=== PATIENT | male | born 1935 | race Caucasian/White ===

== ENCOUNTER 2017-06-14 14:06 | Emergency (ER) | payer OTHER ==
[2017-06-14] MEDS ORDERED: Sodium Chloride 0.9% 10 ML Syringe FLUSH PRN (14:37)
[2017-06-14] MEDS ORDERED: Sodium Chloride 0.9% 1,000 ML IV ONE (14:39)
[2017-06-14] MEDS ORDERED: Piperacillin/Tazobactam 4.5 GM in Sodium Chloride 0.9% 100 ML IV ONE (15:27)
[2017-06-14] MEDS ORDERED: methylPREDNISolone Sodium Succinate 125 MG/2 ML SDV IV ONE (17:05)
--- NOTE | 2017-06-14 18:25 | EDM.PDOC ---
ED HPI GENERAL MEDICAL PROBLEM - General Chief Complaint: Fever Time Seen by Provider: 06/14/17 14:46 Source of Information: Reports: Patient, Family History Limitations: Reports: Altered Mental Status - History of Present Illness INITIAL COMMENTS - FREE TEXT/NARRATIVE: Pt. presents to ER with complaints of confusion, weakness, and productive cough. Pt. family states that the pt. underwent cystoscopy yesterday at [facility] by Dr. Elizalde. Pt. has a history of bladder cancer, and was having some tumor removed. He has a nolan catheter in place that is to be removed tomorrow. To not, the catheter hub was incorrectly attached to the balloon port and not to the leg bag. Pt. was left to his own devices regarding home care. Family states that the pt. has been having a productive cough even prior to the cysto and stated that pt. has COPD and is very prone to pneumonia. He is on home O2. He doctors at the [facility]. Onset: Today Location: Reports: Generalized - Related Data Allergies Allergy/AdvReac Type Severity Reaction Status Date / Time budesonide [From Symbicort] Allergy Dizziness Verified 06/14/17 16:16 formoterol [From Symbicort] Allergy Dizziness Verified 06/14/17 16:16 rosuvastatin Allergy Cannot Verified 06/14/17 16:16 Remember simvastatin Allergy Cannot Verified 06/14/17 16:16 Remember Dngdhis-Qde-Vbp Reductase Allergy Cannot Verified 06/14/17 16:16 Inhibitor Remember Home Meds: Home Meds Acetaminophen [Tylenol] 650 mg PO Q12HR 06/14/17 [History] Albuterol [Proair HFA] 1 - 2 inhalation IH Q4HR PRN 06/14/17 [History] Dextran 70/Hypromellose [Artificial Tears] 2 dose EYEBOTH Q4HR PRN 06/14/17 [ History] Ezetimibe [Zetia] 10 mg PO DAILY 06/14/17 [History] Finasteride [Proscar] 5 mg PO DAILY 06/14/17 [History] Folic Acid 1 mg PO DAILY 06/14/17 [History] Folic Acid 1 mg PO DAILY 06/14/17 [History] Gabapentin [Neurontin] 300 mg PO TID 06/14/17 [History] Gluc 2KCl/Chondr/Cary Hy/Hy Ac [Glucosamine & Chondroitin Cap] 1 tab PO BID [History] Isosorbide Mononitrate [Imdur] 120 mg PO DAILY 06/14/17 [History] Levothyroxine 112 mcg PO DAILY 06/14/17 [History] Metoprolol Tartrate 12.5 mg PO BID 06/14/17 [History] Mometasone Furoate [Asmanex] 220 mcg IN BEDTIME 06/14/17 [History] Multivitamin [One Daily Multivitamin] 1 tab PO DAILY 06/14/17 [History] Nitroglycerin [Nitrostat] 0.4 mg PO ASDIRECTED PRN 06/14/17 [History] Fayette-3/DHA/Epa/Fish Oil [Fayette 3 500 Softgel] 1,000 mg PO DAILY 06/14/17 [ History] Omeprazole 20 mg PO DAILY 06/14/17 [History] Tiotropium [Spiriva] 1 puff INH DAILY 06/14/17 [History] atorvaSTATin [Lipitor] 10 mg PO BEDTIME 06/14/17 [History] glipiZIDE [Glucotrol XL] 2.5 mg PO DAILY 06/14/17 [History] guaiFENesin [Guaifenesin] 400 mg PO TID 06/14/17 [History] Social & Family History - Tobacco Use Smoking Status *Q: Unknown Ever Smoked - Recreational Drug Use Recreational Drug Use: No Drug Use in Last 12 Months: No ED ROS GENERAL - Review of Systems Review Of Systems: Unable To Obtain (Please see HPI. Is unable to offer any usable ROS) ED EXAM, GENERAL - Physical Exam Exam: See Below Exam Limited By: No Limitations General Appearance: Alert, WD/WN, No Apparent Distress Eye Exam: Bilateral Eye: EOMI, Normal Fundi, Normal Inspection, PERRL Ears: Normal External Exam, Normal Canal, Hearing Grossly Normal, Normal TMs Ear Exam: Bilateral Ear: Auricle Normal, Canal Normal, TM normal Nose: Normal Inspection, Normal Mucosa, No Blood Throat/Mouth: Normal Inspection, Normal Lips, Normal Teeth, Normal Gums, Normal Oropharynx, Normal Voice, No Airway Compromise Head: Atraumatic, Normocephalic Neck: Normal Inspection, Supple, Non-Tender, Full Range of Motion Respiratory/Chest: Decreased Breath Sounds, Crackles. No: Respiratory Distress Cardiovascular: Normal Peripheral Pulses, Regular Rate, Rhythm, No Edema, No Gallop, No JVD, No Murmur, No Rub Peripheral Pulses: 3+: Radial (L), Radial (R) GI/Abdominal: Normal Bowel Sounds, Soft, Non-Tender, No Organomegaly, No Distention, No Abnormal Bruit, No Mass (Male) Exam: Deferred Rectal (Males) Exam: Deferred Back Exam: Normal Inspection, Full Range of Motion, NT Extremities: Normal Inspection, Normal Range of Motion, Non-Tender, Normal Capillary Refill, No Pedal Edema Neurological: Alert, Oriented, CN II-XII Intact, Normal Cognition, Normal Gait, Normal Reflexes, No Motor/Sensory Deficits Psychiatric: Normal Affect, Normal Mood Skin Exam: Warm, Dry, Intact, Normal Color, No Rash Lymphatic: No Adenopathy EKG INTERPRETATION Rhythm: NSR Bowman: Normal P-Wave: Present QRS: Normal ST-T: Normal QT: Normal Course - Vital Signs Last Recorded V/S: Last Vital Signs Temp 37.7 C 06/14/17 14:46 Pulse 62 06/14/17 17:27 Resp 17 06/14/17 17:27 BP 128/58 L 06/14/17 17:27 Pulse Ox 91 L 06/14/17 17:27 - Orders/Labs/Meds Orders: Active Orders 24 hr Category Date Time Status EKG Documentation Completion [RC] STAT Care 06/14/17 14:42 Active Chest 1V Frontal [CR] Stat Exams 06/14/17 14:38 Taken CULTURE BLOOD [BC] Stat Lab 06/14/17 14:59 Results CULTURE BLOOD [BC] Stat Lab 06/14/17 15:10 Results CULTURE SPUTUM + SMEAR [RM] Stat Lab 06/14/17 15:28 Results CULTURE URINE [RM] Stat Lab 06/14/17 14:37 Received Blood Culture x2 Reflex Set [OM.PC] Stat Oth 06/14/17 14:38 Ordered Peripheral IV Insertion Adult [OM.PC] Routine Oth 06/14/17 14:38 Ordered Labs: Laboratory Tests 06/14/17 06/14/17 06/14/17 Range/Units 14:59 14:59 14:59 WBC 4.5 (4.0-10.0) x10^3/uL RBC 4.37 L (4.5-6.0) x10^6/uL Hgb 12.6 L (14.0-18.0) g/dL Hct 39.3 L (40.0-52.0) % MCV 89.9 (78.0-93.0) fL MCH 28.8 (26.0-32.0) pg MCHC 32.1 (32.0-36.0) g/dL RDW Coeff of Ashok 14.6 (10.0-15.0) % Plt Count 199 (130-400) x10^3/uL Neut % (Auto) 78.5 (50.0-80.0) % Lymph % (Auto) 5.8 L (25.0-50.0) % [place] % (Auto) 15.1 H (2.0-11.0) % Eos % (Auto) 0.2 (0.0-4.0) % Baso % (Auto) 0.4 (0.2-1.2) % PT 10.8 (9.8-11.8) SEC INR 1.0 L (2.0-3.5) Sodium 138 (136-145) mmol/L Potassium 4.5 (3.5-5.1) mmol/L Chloride 101 (98-107) mmol/L Carbon Dioxide 27 (21-32) mmol/L Anion Gap 14.5 (10-20) mmol/L BUN 20 H (7-18) mg/dL Creatinine 1.6 H (0.70-1.30) mg/dL Est Cr Clr Drug Dosing 35.60 mL/min Estimated GFR (MDRD) 42 Glucose 105 (74-106) mg/dL Lactic Acid (0.4-2.0) mmol/L Calcium 8.5 (8.5-10.1) mg/dL Corrected Calcium 8.90 (8.5-10.1) mg/dL Phosphorus 3.5 (2.6-4.7) mg/dL Magnesium 2.0 (1.8-2.4) mg/dL Total Bilirubin 0.3 (0.2-1.0) mg/dL AST 17 (15-37) U/L ALT 16 (16-63) U/L Alkaline Phosphatase 78 (46-116) U/L C-Reactive Protein 5.3 H (<=0.9) mg/dL Total Protein 7.6 (6.4-8.2) g/dL Albumin 3.5 (3.4-5.0) g/dL Globulin 4.1 Albumin/Globulin Ratio 0.85 Urine Color (YELLOW) Urine Appearance (CLEAR) Urine pH (5.0-8.0) Ur Specific [place] Urine Protein (NEGATIVE) mg/dL Urine Glucose (UA) (NEGATIVE) mg/dL Urine Ketones (NEGATIVE) mg/dL Urine Occult Blood (NEGATIVE) Urine Nitrite (NEGATIVE) Urine Bilirubin (NEGATIVE) Urine Urobilinogen (0.2) EU/dL Ur Leukocyte Esterase (NEGATIVE) Urine RBC (NOT SEEN) /HPF Urine Red Cell Clumps Urine WBC (NOT SEEN) /HPF Ur Squamous Epith Cells (NEGATIVE) /HPF Amorphous Sediment Urine Bacteria (NEGATIVE) /HPF Urine Mucus (NEGATIVE) /LPF Urine Yeast (Budding) 06/14/17 06/14/17 Range/Units 14:59 15:28 WBC (4.0-10.0) x10^3/uL RBC (4.5-6.0) x10^6/uL Hgb (14.0-18.0) g/dL Hct (40.0-52.0) % MCV (78.0-93.0) fL MCH (26.0-32.0) pg MCHC (32.0-36.0) g/dL RDW Coeff of Ashok (10.0-15.0) % Plt Count (130-400) x10^3/uL Neut % (Auto) (50.0-80.0) % Lymph % (Auto) (25.0-50.0) % [place] % (Auto) (2.0-11.0) % Eos % (Auto) (0.0-4.0) % Baso % (Auto) (0.2-1.2) % PT (9.8-11.8) SEC INR (2.0-3.5) Sodium (136-145) mmol/L Potassium (3.5-5.1) mmol/L Chloride (98-107) mmol/L Carbon Dioxide (21-32) mmol/L Anion Gap (10-20) mmol/L BUN (7-18) mg/dL Creatinine (0.70-1.30) mg/dL Est Cr Clr Drug Dosing mL/min Estimated GFR (MDRD) Glucose (74-106) mg/dL Lactic Acid 1.2 (0.4-2.0) mmol/L Calcium (8.5-10.1) mg/dL Corrected Calcium (8.5-10.1) mg/dL Phosphorus (2.6-4.7) mg/dL Magnesium (1.8-2.4) mg/dL Total Bilirubin (0.2-1.0) mg/dL AST (15-37) U/L ALT (16-63) U/L Alkaline Phosphatase (46-116) U/L C-Reactive Protein (<=0.9) mg/dL Total Protein (6.4-8.2) g/dL Albumin (3.4-5.0) g/dL Globulin Albumin/Globulin Ratio Urine Color Yellow (YELLOW) Urine Appearance Turbid H (CLEAR) Urine pH 5.5 (5.0-8.0) Ur Specific [place] 1.025 Urine Protein 100 H (NEGATIVE) mg/dL Urine Glucose (UA) Negative (NEGATIVE) mg/dL Urine Ketones Trace H (NEGATIVE) mg/dL Urine Occult Blood Moderate H (NEGATIVE) Urine Nitrite Negative (NEGATIVE) Urine Bilirubin Negative (NEGATIVE) Urine Urobilinogen 0.2 (0.2) EU/dL Ur Leukocyte Esterase Trace H (NEGATIVE) Urine RBC >100 H (NOT SEEN) /HPF Urine Red Cell Clumps Present Urine WBC 5-10 H (NOT SEEN) /HPF Ur Squamous Epith Cells Rare (NEGATIVE) /HPF Amorphous Sediment Few Urine Bacteria Few H (NEGATIVE) /HPF Urine Mucus Few H (NEGATIVE) /LPF Urine Yeast (Budding) Moderate Meds: Medications Discontinued Medications Generic Name Dose Route Start Last Admin Trade Name Velq PRN Reason Stop Dose Admin Sodium Chloride 1,000 mls @ 1,000 mls/hr 06/14/17 14:39 06/14/17 14:56 Normal Saline IV 06/14/17 15:38 1,000 mls/hr .BOLUS ONE Infusion Piperacillin Sod/Tazobactam 100 mls @ 200 mls/hr 06/14/17 15:27 06/14/17 15: 37 Sod 4.5 gm/ Sodium Chloride IV 06/14/17 15:56 200 mls/hr ONETIME ONE Administration Vancomycin HCl 1,250 mg/ 250 mls @ 200 mls/hr 06/14/17 15:28 06/14/17 16:12 Sodium Chloride IV 06/14/17 16:42 200 mls/hr ONETIME ONE Administration Methylprednisolone Sodium Succinate 125 mg 06/14/17 17:05 06/14/17 17:18 Solu-Medrol IV 06/14/17 17:06 125 mg ONETIME ONE Administration Sodium Chloride 10 ml 06/14/17 14:37 06/14/17 17:18 Saline Flush FLUSH 10 ml ASDIRECTED PRN Administration Keep Vein Open - Radiology Interpretation Free Text/Narrative:: Port CXR revealed early LLL infiltrate Departure - Departure Time of Disposition: 17:45 Disposition: DC/Tfer to [facility] 02 Clinical Impression: Pneumonia - Discharge Information Referrals: PCP,None [Primary Care Provider] - Forms: ED Department Discharge, Interfacility Transfer EMTALA - My Orders Last 24 Hours: My Active Orders 06/14/17 14:37 CULTURE URINE [RM] Stat 06/14/17 14:38 Chest 1V Frontal [CR] Stat Blood Culture x2 Reflex Set [OM.PC] Stat Peripheral IV Insertion Adult [OM.PC] Routine 06/14/17 14:42 EKG Documentation Completion [RC] STAT 06/14/17 14:59 CULTURE BLOOD [BC] Stat 06/14/17 15:10 CULTURE BLOOD [BC] Stat 06/14/17 15:28 CULTURE SPUTUM + SMEAR [RM] Stat - Assessment/Plan Last 24 Hours: My Active Orders 06/14/17 14:37 CULTURE URINE [RM] Stat 06/14/17 14:38 Chest 1V Frontal [CR] Stat Blood Culture x2 Reflex Set [OM.PC] Stat Peripheral IV Insertion Adult [OM.PC] Routine 06/14/17 14:42 EKG Documentation Completion [RC] STAT 06/14/17 14:59 CULTURE BLOOD [BC] Stat 06/14/17 15:10 CULTURE BLOOD [BC] Stat 06/14/17 15:28 CULTURE SPUTUM + SMEAR [RM] Stat
== END 2017-06-14 17:55 | disposition short-term general hospital (02) ==
LOC: VM.ED 14:06
DX: J18.9 Pneumonia, unspecified organism (principal); Z88.8 Allergy status to other drugs, medicaments and biological substances; Z79.899 Other long term (current) drug therapy
CPT/HCPCS: 36415; 71045; 80053; 81001; 83605; 83735; 84100; 85025; 85610; 86140; 87040; 87070; 87086; 87205; 93005; 96365; 96366; 96367; 96368; 96375; 99285; J2543; J2930; J3370; J7030; J7050